=== PATIENT | female | born 1950 | race Caucasian/White ===

== ENCOUNTER 2022-03-26 14:40 | Inpatient (IN) | payer OTHER ==
[~2022-03-26] VITALS: Ht 147.3 cm; Wt 58.5 kg
--- NOTE | 2022-03-26 14:51 | NUR ---
PT BROUGHT IN BY WHEELCHAIR TO BED 11
--- NOTE | 2022-03-26 14:51 | NUR ---
GALILEO REYNOLDS PHONE NUMBER GIVEN
[2022-03-26 14:52] VITALS: BP 128/54
--- NOTE | 2022-03-26 15:08 | NUR ---
71 Y/O FEMALE C/O FATIGUE, LEG PAIN AND CHEST PAIN X 8 MONTHS AGO. PT DENIES N/V/D. PT REPORTS SHARP PAIN TO LEGS AND CHEST UPON MOVEMENT 04/10. DENIES RADIATING PAIN. AOX4. [place] SPEAKING. 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 RESPIRATIONS EVEN AND UNLABORED. ALLERGIES: IBUPROFEN PMH: HIGH CHOLESTERO, HTN, ASTHMA
--- NOTE | 2022-03-26 15:35 | NUR ---
LAB AT BEDSIDE.
[2022-03-26 15:44] LABS: BASOPHILS % (AUTO) 1.1 % (0.0-2.0); EOSINOPHILS # (AUTO) 0.1 K/uL (0-0.4); EOSINOPHILS % (AUTO) 3.1 % (0.0-4.0); HEMATOCRIT 31.7 % (36-48); HEMOGLOBIN 9.8 g/dL (12.0-16.0); LYMPHOCYTES % (AUTO) 22.9 % (20.5-51.1); MEAN CORPUSCULAR HEMOGLOBIN 28 pg (27-31); MEAN CORPUSCULAR HGB CONC 31 g/dL (33-37); MEAN CORPUSCULAR VOLUME 89.3 fL (80-94); MONOCYTES # (AUTO) 0.4 K/uL (0.8-1.0); MONOCYTES % (AUTO) 10.4 % (1.7-9.3); NEUTROPHILS # (AUTO) 2.7 K/uL (1.8-7.7); NEUTROPHILS % (AUTO) 62.5 % (42.2-75.2); PLATELET COUNT (AUTO) 251 K/uL (140-450); RED BLOOD CELL COUNT(AUTO) 3.55 MIL/uL (4.20-5.40); RED CELL DISTRIBUTION WIDTH 20.8 % (11.6-13.7); WHITE BLOOD COUNT (AUTO) 4.3 K/uL (4.8-10.8)
[2022-03-26 15:44] LABS: APPEARANCE,URINE HAZY (CLEAR); BILIRUBIN,URINE NEGATIVE (NEGATIVE); BLOOD, URINE 1+ (NEGATIVE); COLOR,URINE YELLOW (YELLOW); LEUKOCYTE ESTERASE ,URINE NEGATIVE (NEGATIVE); NITRITE, URINE NEGATIVE (NEGATIVE); UGLUCOSE 3+ (NEGATIVE)
[2022-03-26 15:57] LABS: OTHER CASTS, URINE None Seen /LPF (None Seen); RBC,URINE 0-5 /HPF (0-5); WBC,URINE 0-5 /HPF (0-5)
[2022-03-26 16:09] LABS: ALBUMIN 3.9 g/dL (3.4-5.0); ASPARTATE AMINOTRANSFERASE 33 U/L (15-37); CARBON DIOXIDE 24.3 mmol/L (21-32); CHLORIDE 102 mmol/L (98-107); CREATININE 1.1 mg/dL (0.6-1.3); GLUCOSE 138 mg/dL (74-106); POTASSIUM 4.3 mmol/L (3.5-5.1); SODIUM SERUM 137 mmol/L (136-145); TOTAL BILIRUBIN 1.2 mg/dL (0.0-1.0); UREA NITROGEN, BLOOD 34 mg/dL (7-18)
[2022-03-26] MEDS ORDERED: NITROGLYCERIN 0.4 MG TAB SL ONE (16:20)
[2022-03-26] MEDS ORDERED: FUROSEMIDE 40 MG/4 ML VIAL IVP ONE (16:20)
--- NOTE | 2022-03-26 16:59 | NUR ---
PT AMBULATES WITH STEADY GAIT TO RESTROOM.
--- NOTE | 2022-03-26 17:02 | NUR ---
PT RESTING COMFORTABLY IN BED IN LOWEST POSITION. SIDE RAILS UP X1.
--- NOTE | 2022-03-26 18:34 | NUR ---
PT DENIES PAIN AND SOB AT THIS TIME.
--- NOTE | 2022-03-26 18:37 | NUR ---
DR YOUNGBLOOD AT BEDSIDE
--- NOTE | 2022-03-26 18:45 | NUR ---
MAYURI SWAB GIVEN TO ADELA PATEL.
--- NOTE | 2022-03-26 18:49 | NUR ---
SPOKE TO KAVEH GURROLA ABOUT PT PENDING ADMISSION.
[2022-03-26] MEDS ORDERED: HYDR-3293 PO (19:04)
[2022-03-26] MEDS ORDERED: POTA10TA75 PO (19:04)
[2022-03-26] MEDS ORDERED: FURO-570 PO (19:04)
[2022-03-26] MEDS ORDERED: ASPI-1822 PO (19:04)
[2022-03-26] MEDS ORDERED: BUDE1AER2 IH (19:04)
[2022-03-26] MEDS ORDERED: CARV12.5 PO (19:04)
[2022-03-26] MEDS ORDERED: CHOL200072 PO (19:04)
[2022-03-26] MEDS ORDERED: ACET-9800 PO (19:05)
--- NOTE | 2022-03-26 19:05 | NUR ---
PT AMBULATED WITH STEADY GAIT TO RESTROOM.
--- NOTE | 2022-03-26 19:18 | NUR ---
Pt report given to SEFERINO LEVINE. Transfer of care at this time.
--- NOTE | 2022-03-26 20:00 | NUR ---
RESTING COMFORTABLY. C/O BEING COLD. WARM BLANKETS GIVEN
[2022-03-26] MEDS ORDERED: DOCUSATE SODIUM 100 MG GELCAP PO PRN (21:20)
[2022-03-26] MEDS ORDERED: ONDANSETRON 4 MG/2 ML VIAL IM/IVP PRN (21:20)
[2022-03-26] MEDS ORDERED: POTASSIUM CHLORIDE 10 MEQ TABER PO PRN (21:20)
[2022-03-26] MEDS ORDERED: guaiFENesin DM 200/20 MG-10 ML 10 ML UDC PO PRN (21:20)
[2022-03-26] MEDS ORDERED: ZOLPIDEM 5 MG TAB PO PRN (21:20)
[2022-03-26] MEDS ORDERED: ACETAMINOPHEN 325 MG TAB PO PRN (21:20)
[2022-03-26] MEDS ORDERED: HYDROcodone/APAP 7.5/325 MG 1 TAB PO PRN (21:20)
[2022-03-26] MEDS ORDERED: ALBUTEROL SULFATE/IPRATROPIU 3 ML SOL IH PRN (21:25)
[2022-03-26 21:59] LABS: PROTHROMBIN TIME 12.1 secs (10.8-13.4)
[2022-03-26 22:12] LABS: FREE T4 (FREE THYROXINE) 1.66 ng/dL (0.76-1.46); MAGNESIUM 2.1 mg/dL (1.8-2.4); PHOSPHORUS 4.1 mg/dL (2.5-4.9); THYROID STIMULATING HORMONE 2.58 uIU/mL (0.34-3.74)
[2022-03-26] MEDS ORDERED: cefTRIAXone 1,000 MG VIAL ONE (22:44)
[2022-03-26] MEDS: carvediloL 12.5 MG TAB PO SCH (22:52)
--- NOTE | 2022-03-26 23:30 | NUR ---
AWAKE. AMBULATES TO BR WITH STEADY GAIT
--- NOTE | 2022-03-27 01:45 | NUR ---
TO BED 124B VIA GURNEY, ATTACHED TO CM, ACCOMPANIED BY RN AND ERT. REPORT GIVEN TO SEFERINO LIN
[2022-03-27 01:50] VITALS: BP 102/61
--- NOTE | 2022-03-27 01:50 | NUR ---
RECEIVED BEDSIDE REPORT FROM ER NURSE ABNER. PT ARRIVED VIA GURNEY, PT AMBULATED TO BED ON HER OWN WITH STEADY GAIT. PT AWAKE, ALERT AND ORIENTED X 4. ON ROOM AIR, RESPIRATIONS EQUAL AND UNLABORED, NO DISTRESS NOTED. IV ON R HAND G 24, SALINE LOCKED. SKIN WARM, DRY AND INTACT. NO COMPLAINS OF PAIN OR SOB AT THIS TIME. PT REQUESTED FOR SANDWICH AND WATER. MRSA SWAB DONE, PT ORIENTED TO ROOM AND CALL LIGHT.ALL NEEDS MET AT THIS TIME. ALL PRECAUTIONS IN PLACE.CALL LIGHT WITHIN REACH. WILL CONTINUE TO MONITOR.
[2022-03-27 04:00] VITALS: BP 110/65
--- NOTE | 2022-03-27 04:02 | NUR ---
pt sleeping comfortably on ra w/ no distress noted
--- NOTE | 2022-03-27 04:30 | NUR ---
PT ASLEEP AT THIS TIME. RESPIRATIONS EQUAL AND UNLABORED, NO DISTRESS NOTED. ALL PRECAUTIONS IN PLACE. WILL CONTINUE TO MONITOR.
[2022-03-27 06:32] LABS: EOSINOPHILS # (AUTO) 0.2 K/uL (0-0.4); EOSINOPHILS % (AUTO) 4.3 % (0.0-4.0); HEMATOCRIT 24.6 % (36-48); HEMOGLOBIN 7.8 g/dL (12.0-16.0); LYMPHOCYTES # (AUTO) 0.7 K/uL (2.5-16.5); LYMPHOCYTES % (AUTO) 20.1 % (20.5-51.1); MEAN CORPUSCULAR HEMOGLOBIN 28 pg (27-31); MEAN CORPUSCULAR HGB CONC 32 g/dL (33-37); MEAN CORPUSCULAR VOLUME 87.8 fL (80-94); MONOCYTES # (AUTO) 0.5 K/uL (0.8-1.0); MONOCYTES % (AUTO) 12.3 % (1.7-9.3); NEUTROPHILS # (AUTO) 2.3 K/uL (1.8-7.7); NEUTROPHILS % (AUTO) 62.3 % (42.2-75.2); PLATELET COUNT (AUTO) 172 K/uL (140-450); RED BLOOD CELL COUNT(AUTO) 2.81 MIL/uL (4.20-5.40); RED CELL DISTRIBUTION WIDTH 19.9 % (11.6-13.7); WHITE BLOOD COUNT (AUTO) 3.7 K/uL (4.8-10.8)
[2022-03-27 06:54] LABS: ANION GAP 14.2 (8-16); CARBON DIOXIDE 26.1 mmol/L (21-32); CHLORIDE 105 mmol/L (98-107); CREATININE 1.2 mg/dL (0.6-1.3); GLUCOSE 159 mg/dL (74-106); POTASSIUM 3.3 mmol/L (3.5-5.1); SODIUM SERUM 142 mmol/L (136-145); UREA NITROGEN, BLOOD 34 mg/dL (7-18)
[2022-03-27] MEDS: ALBUTEROL SULFATE/IPRATROPIU 3 ML SOL IH SCH ×2 (07:57→14:35)
[2022-03-27 09:00] VITALS: BP 95/54
[2022-03-27] MEDS ORDERED: hydroCHLOROthiazide 25 MG TAB PO SCH (09:00)
[2022-03-27] MEDS ORDERED: NON-FORMULARY ITEM (Losartan/Hydrochlorothiazide (Losartan-Hctz 50-12.5 mg Tab) 1 TAB) PO SCH (09:00)
[2022-03-27] MEDS ORDERED: LOSARTAN 50 MG TAB PO SCH (09:00)
[2022-03-27] MEDS ORDERED: FUROSEMIDE 40 MG/4 ML VIAL IVP SCH (09:00)
--- NOTE | 2022-03-27 09:09 | NUR ---
PATIENT HAS BEEN SCREENED AND CATEGORIZED MODERATE NUTRITION RISK. PATIENT WILL BE SEEN WITHIN 3-5 DAYS OF ADMISSION. / [address]
[2022-03-27] MEDS ORDERED: DEXTROSE 50% 50 ML SYR IVP PRN (10:00)
[2022-03-27] MEDS: carvediloL 12.5 MG TAB PO SCH (10:05)
[2022-03-27] MEDS: PANTOPRAZOLE 40 MG TABEC PO SCH (10:05)
[2022-03-27] MEDS: ASPIRIN 81 MG TAB.CHEW PO SCH (10:06)
[2022-03-27] MEDS: BLOOD GLUCOSE MONITORING 1 DEV DEV FS SCH ×3 (11:30→21:00)
[2022-03-27 12:00] VITALS: BP 100/58
[2022-03-27] MEDS ORDERED: diphenhydrAMINE 50 MG/ML VIAL IVP SCH (14:30)
--- NOTE | 2022-03-27 15:57 | NUR ---
0730 Pt. sleeping quietly, no distress, call light in reach 0900 Vss, given am meds, pt. aaox4, call light in reach 1200 Pt. with no distress, no resp. or cp noted 1400 Pt. noted to have edemetous swelling of both eyelids, right more than left, pt. with no sight problems, aaox4. States she is itiching and thinks she is having a reaction to her am meds. Call to Dr. Hernandez, order to given Benadryl 25mg ivpx1. Med given, will monitor. 1500 Pt. states she is improving, slight decrease in eyelid swelling, no resp. distress or itching, will monitor. Addendum: 03/27/22 at 1846 by Agency 01 RN RN 1600 Pt. with k of 3.2 Given prn kcl as ordered, pt. tolerated well, SR on monitor. 1800 Pt. with no acute distress, eating dinner, call light in reach, minimal swelling at eyelids noted pt. in good spirits.
[2022-03-27] MEDS: ATORVASTATIN 20 MG TAB PO SCH (16:40)
[2022-03-27 17:39] VITALS: BP 95/55
[2022-03-27 20:00] VITALS: BP 92/59
[2022-03-27] MEDS: INSULIN LISPRO SLIDING SCALE 100 UNITS/ML VIAL SUBQ PRN (21:00)
[2022-03-27] MEDS ORDERED: POTASSIUM CHLORIDE 10 MEQ TABER PO SCH (21:00)
[2022-03-28] VITALS: BP 100/60
--- NOTE | 2022-03-28 02:17 | NUR ---
PATIENT AWAKE NO C/O ROOM AIR SAT 99%. LUNGS DIMINISH. ON MONITOR SINUS. TEMP 97.5. HAS 24 GA IN RIGHT HAND.PATENT TO FLUSH. BLOOD SUGAR 158 2130 GIVEN 2 UNITS S.Q. HUMALOG. START ROCEPHIN 1,0000 MG IVPB 2200. NO C/O NO DISTRESS NOTED PATIENT AMBULATE TO BATH ROOM WELL.
[2022-03-28 04:00] VITALS: BP 102/64
[2022-03-28 05:09] LABS: ANION GAP 15.2 (8-16); CARBON DIOXIDE 24.1 mmol/L (21-32); CHLORIDE 104 mmol/L (98-107); CREATININE 1.2 mg/dL (0.6-1.3); GLUCOSE 94 mg/dL (74-106); POTASSIUM 4.3 mmol/L (3.5-5.1); SODIUM SERUM 139 mmol/L (136-145); UREA NITROGEN, BLOOD 36 mg/dL (7-18)
[2022-03-28 05:12] LABS: BASOPHILS % (AUTO) 0.8 % (0.0-2.0); EOSINOPHILS # (AUTO) 0.1 K/uL (0-0.4); EOSINOPHILS % (AUTO) 2.2 % (0.0-4.0); HEMATOCRIT 26.4 % (36-48); HEMOGLOBIN 8.3 g/dL (12.0-16.0); LYMPHOCYTES # (AUTO) 0.5 K/uL (2.5-16.5); LYMPHOCYTES % (AUTO) 10.1 % (20.5-51.1); MEAN CORPUSCULAR HEMOGLOBIN 28 pg (27-31); MEAN CORPUSCULAR HGB CONC 32 g/dL (33-37); MEAN CORPUSCULAR VOLUME 87.7 fL (80-94); MONOCYTES # (AUTO) 0.4 K/uL (0.8-1.0); NEUTROPHILS # (AUTO) 4.2 K/uL (1.8-7.7); NEUTROPHILS % (AUTO) 79.9 % (42.2-75.2); PLATELET COUNT (AUTO) 182 K/uL (140-450); RED BLOOD CELL COUNT(AUTO) 3.01 MIL/uL (4.20-5.40); RED CELL DISTRIBUTION WIDTH 19.9 % (11.6-13.7); WHITE BLOOD COUNT (AUTO) 5.3 K/uL (4.8-10.8)
[2022-03-28] MEDS: BLOOD GLUCOSE MONITORING 1 DEV DEV FS SCH ×3 (07:06→16:30)
[2022-03-28 07:08] LABS: T4 (THYROXINE) 10.2 ug/dL (4.5-12.0)
[2022-03-28] MEDS: ALBUTEROL SULFATE/IPRATROPIU 3 ML SOL IH SCH ×2 (07:23→14:06)
--- NOTE | 2022-03-28 07:36 | NUR ---
RECEIVED REPORT FROM NIGHTSHIFT RNKT. PT A/O X3. ABLE TO MAKE NEEDS KNOWN. NO SOB OR DISTRESS NOTED. ON RA. DENIES PAIN AT THIS TIME. CARDIAC DIET. IV TO SL. AMBULATORY. NEEDS ALL MET AT THIS TIME. SAFETY MEASURES IN PLACE.
[2022-03-28 08:00] VITALS: BP 100/60
[2022-03-28] MEDS: ASPIRIN 81 MG TAB.CHEW PO SCH (08:48)
[2022-03-28] MEDS: PANTOPRAZOLE 40 MG TABEC PO SCH (08:48)
[2022-03-28] MEDS: FUROSEMIDE 40 MG/4 ML VIAL IVP SCH ×2 (08:55→16:44)
[2022-03-28] MEDS ORDERED: carvediloL 6.25 MG TAB PO SCH (09:00)
[2022-03-28] MEDS ORDERED: LOSARTAN 25 MG TAB PO SCH (09:00)
[2022-03-28 09:06] LABS: FERRITIN 17 ng/mL (15-150); TRANSFERRIN 269 mg/dL (192-364)
[2022-03-28] MEDS ORDERED: METF-1243 PO (11:43)
[2022-03-28] MEDS ORDERED: DOCU-299 PO (11:43)
[2022-03-28] MEDS ORDERED: FER325 PO (11:43)
[2022-03-28] MEDS ORDERED: CARV6.252 PO (11:43)
[2022-03-28] MEDS ORDERED: LOSA25TA1 PO (11:43)
[2022-03-28] MEDS ORDERED: ATOR20TA40 PO (11:43)
[2022-03-28] MEDS: INSULIN LISPRO SLIDING SCALE 100 UNITS/ML VIAL SUBQ PRN (11:48)
[2022-03-28 12:00] VITALS: BP 98/50
--- NOTE | 2022-03-28 12:30 | NUR ---
HOSPICE CARE TRANSITIONS COORDINATOR CHECK BP WITH READING OF 88/45. BP RECHECK 98/50, HR 76. PT DENIES PAIN, DIZZINESS. NO SOB OR RESPIRATORY DISTRESS NOTED. ON RA. LUNCH AT BEDSIDE, RESTING COMFORTABLY. NEEDS ALL MET AT THIS TIME. SAFETY MEASURES IN PLACE.
[2022-03-28 13:31] VITALS: BP 98/50
[2022-03-28 15:06] LABS: FOLIC ACID > 20.00 ng/mL (>3.0)
--- NOTE | 2022-03-28 15:42 | NUR ---
DISCHARGE INSTRUCTIONS GIVEN TO PT. PT VERBALIZED UNDERSTANDING. SPOKE WITH GRAND DAUGHTER KAVEH VIA TELEPHONE ALSO AND GAVE DISCHARGE INSTRUCTIONS. PT STATES WILL PICK HER UP AT 5 PM.
[2022-03-28] MEDS: ATORVASTATIN 20 MG TAB PO SCH (16:39)
[2022-03-28] MEDS ORDERED: FERROUS SULFATE 325 MG TABEC PO SCH (17:00)
--- NOTE | 2022-03-28 17:15 | NUR ---
IV DISCONTINUED. ASSISTED PT AND PT'S DAUGHTER AMBULATING OUT.
== END 2022-03-28 17:20 | disposition home or self-care (01) | DRG 291 ==
LOC: MED 14:40 → EDBD 21:21 → MTU 21:21
PROVIDERS: ADMIT Family Medicine; ATTEND Family Medicine
DX: I11.0 Hypertensive heart disease with heart failure (principal); I50.43 Acute on chronic combined systolic (congestive) and diastolic (congestive) heart failure; I42.8 Other cardiomyopathies; J45.909 Unspecified asthma, uncomplicated; E87.6 Hypokalemia; E11.9 Type 2 diabetes mellitus without complications; D63.8 Anemia in other chronic diseases classified elsewhere; I34.0 Nonrheumatic mitral (valve) insufficiency; I36.1 Nonrheumatic tricuspid (valve) insufficiency; Z20.822 Contact with and (suspected) exposure to COVID-19; Z88.6 Allergy status to analgesic agent; Z79.899 Other long term (current) drug therapy; Z79.82 Long term (current) use of aspirin; Z79.1 Long term (current) use of non-steroidal anti-inflammatories (NSAID); Z85.3 Personal history of malignant neoplasm of breast; R07.89 Other chest pain
CPT/HCPCS: 36415; 71045; 80048; 80053; 81001; 82150; 82607; 82728; 82746; 82948; 83036; 83540; 83690; 83735; 83880; 84100; 84436; 84439; 84443; 84479; 84484; 85025; 85045; 85610; 85730; 93005; 94640; 96374; 97116; 99285; J0696; J1200; J1815; J1940; J7060; Q0092